=== PATIENT | female | born 1950 | race Caucasian/White ===

== ENCOUNTER 2017-06-20 09:13 | Emergency (ER) | payer BC ==
[~2017-06-20] VITALS: Ht 167.6 cm; Wt 82.8 kg
[~2017-06-20 09:13] MED LIST: 0.92SYRI2 IV; CALC1TAB16 PO; FURO1TAB60 PO; PHEN37.54 PO; POTA1TAB4 PO; WELC625T2 PO; ZOLE5P IV
[2017-06-20 09:18] VITALS: BP 134/63; PULSE 80; RESP 18; TEMP 97.8; O2SAT 100
--- NOTE | 2017-06-20 09:35 | PD ---
HPI Chief Complaint: Cold / Flu Symptoms Time Seen by Provider: 09:20 Travel History International Travel<30 days: No Contact w/Intl Traveler<30days: No Traveled to known affect area: No History of Present Illness HPI This 67-year-old female is complaining of cough and congestion. She's been sick for about a day. She is felt like she's had a fever at home. She's had some chills. She has not been bringing up much phlegm but she has had a persistent cough. She feels short of breath at times. She does not smoke. She has no history of asthma. She had a history of personal was cervix several years ago with radiation and chemotherapy. She has some sharp chest pain associated with coughing PFSH Past Medical History Cancer: Yes (CERVICAL) Cardiovascular Problems: No Chemotherapy: Yes Diabetes: No Diminished Hearing: No Endocrine: No Gastrointestinal Disorders: No Glaucoma: No Genitourinary: No Hepatitis: No Hiatal Hernia: No Hypertension: No Immune Disorder: No Implanted Vascular Access Dvce: Yes Musculoskeletal: Yes (COMPRESSION FX L5 S1; ) Neurologic: Yes (NERVE PAIN INTO BOTH LEGS FROM BACK ) Psychiatric: No Reproductive: Yes (CERVICAL CANCER) Respiratory: No Immunizations Current: Yes Radiation Therapy: Yes Thyroid Disease: No ?: Not Menopausal: Yes Past Surgical History Abdominal Surgery: Yes (GB) AICD: No Body Medical Devices: NONE Cardiac Surgery: No Cholecystectomy: Yes Ear Surgery: No Endocrine Surgery: No Eye Surgery: Yes (LASIK) Genitourinary Surgery: No Gynecologic Surgery: Yes (CRYOSURGERY OF CERVIX) Joint Replacement: No Neurologic Surgery: No Oral Surgery: Yes (TONSILLECTOMY) Pacemaker: No Thoracic Surgery: Yes (INFUSAPORT IN/OUT) Tonsillectomy: Yes Other Surgery: Yes (kyphoplasty) Social History Alcohol Use: No Tobacco Use: No Substance Use: No Allergies-Medications (Allergen,Severity, Reaction): Coded Allergies: No Known Allergies (Verified , 06/20/17) Reported Meds & Prescriptions Reported Meds & Active Scripts Active Reported Normal Saline Flush (Sodium Chloride Flush) 0.9 % Inj 250 Ml IV Q365 Reclast Inj (Zoledronic Acid) 5 Mg/100 Ml Inj 5 Mg IV Q365D Welchol (Colesevelam HCl) 625 Mg Tab 625 Mg PO DAILY K-Tab (Potassium Chloride) 20 Meq Tab 20 Meq PO DAILY Lasix (Furosemide) 40 Mg Tab 40 Mg PO DAILY Review of Systems General / Constitutional: Positive: Fever, Chills HENT: Positive: Rhinitis, Rhinorrhea, Congestion, No: Sore Throat Cardiovascular: Positive: Chest Pain or Discomfort Respiratory: Positive: Cough, Shortness of Breath, No: Wheezing, Hemoptysis Gastrointestinal: No: Nausea, Vomiting Genitourinary: No: Urgency, Frequency Musculoskeletal: No: Myalgias Skin: No Rash Neurologic: Positive: Weakness Physical Exam Narrative GENERAL: Well-developed female SKIN: Focused skin assessment warm/dry. HEAD: Atraumatic. Normocephalic. EYES: Pupils equal and round. No scleral icterus. No injection or drainage. ENT: No nasal bleeding or discharge. Mucous membranes pink and moist. NECK: Trachea midline. No JVD. CARDIOVASCULAR: Regular rate and rhythm. No murmur appreciated. RESPIRATORY: No accessory muscle use. Clear to auscultation. Breath sounds occasional rhonchi GASTROINTESTINAL: Abdomen soft, non-tender, nondistended. Hepatic and splenic margins not palpable. MUSCULOSKELETAL: No obvious deformities. No clubbing. No cyanosis. No edema. NEUROLOGICAL: Awake and alert. No obvious cranial nerve deficits. Motor grossly within normal limits. Normal speech. PSYCHIATRIC: Appropriate mood and affect; insight and judgment normal. Data Data Last Documented VS Vital Signs Date Time Temp Pulse Resp B/P (MAP) Pulse Ox O2 Delivery O2 Flow Rate FiO2 06/20/17 09:32 18 100 Room Air 06/20/17 09:18 97.8 80 134/63 (86) Orders Orders Influenzae A/B Antigen (06/20/17 09:30) Chest, Pa & Lat (06/20/17 09:30) Amoxicillin (Trimox) (06/20/17 10:45) MDM Medical Decision Making Medical Screen Exam Complete: Yes Emergency Medical Condition: Yes Medical Record Reviewed: Yes Differential Diagnosis Differential includes influenza, pneumonia, bronchitis Narrative Course X-rays negative for pneumonia. Influenza test is negative. Impression is bronchitis Diagnosis Primary Impression: Acute bronchitis Qualified Codes: J20.9 - Acute bronchitis, unspecified Scripts Amoxicillin (Amoxicillin) 500 Mg Tab 500 MG PO TID for Infection, #21 TAB 0 Refills Prov: Marky Razo MD 06/20/17 Disposition: 01 DISCHARGE HOME Condition: Stable Marky Razo MD Jun 20, 2017 09:35
--- NOTE | 2017-06-20 09:50 | RADRPT ---
EXAM DATE/TIME: 06/20/2017 09:34 [facility] COMPARISON: FINGER LEFT 4TH DIGIT ([id number]), November 17, 2015, 21:30. INDICATIONS : Cough and congestion. MEDICAL HISTORY : Cervical cancer. SURGICAL HISTORY : Kyphoplasty. ENCOUNTER: Initial ACUITY: 1 day PAIN SCORE: 0/10 LOCATION: Bilateral chest FINDINGS: PA and lateral views of the chest demonstrate the lungs to be symmetrically aerated without evidence of mass, infiltrate or effusion. The cardiomediastinal contours are unremarkable. Osseous structure s are intact. CONCLUSION: 1. No acute cardiopulmonary findings. Tommy Falcon MD on June 20, 2017 at 9:49 Board Certified Radiologist. This report was verified electronically.
[2017-06-20] MEDS ORDERED: AMOX500T PO (10:37)
[2017-06-20] MEDS ORDERED: AMOXICILLIN (TRIHYDRATE) 500 MG CAP PO ONE (10:45)
== END 2017-06-20 10:56 | disposition home or self-care (01) ==
LOC: PHED 09:13
DX: J20.9 Acute bronchitis, unspecified (principal)
CPT/HCPCS: 71020; 87804; 99284